=== PATIENT | male | born 1980 | race Caucasian/White ===

== ENCOUNTER 2022-10-03 14:15 | Emergency (ER) | payer OTHER ==
[~2022-10-03] VITALS: Ht 162.6 cm; Wt 62.0 kg
[2022-10-03] MEDS ORDERED: ASPIRIN 81MG TABLET PO ONE (23:15)
[2022-10-04] LABS: BASOPHILS % 0.4 % (0.0-2.0); EOSINOPHILS % 0.9 % (0.0-5.0); HEMOGLOBIN. 15.7 g/dL (14.0-18.0); LYMPHOCYTES % 25.2 % (20.0-50.0); MEAN CORPUSCULAR HEMOGLOBIN 31.5 pg (28.0-32.0); MEAN CORPUSCULAR VOLUME 90.6 fL (80.0-94.0); MONOCYTES % 9.8 % (2.0-8.0); NEUTROPHILS % 63.7 % (40.0-76.0); PLATELET 293 x1000/uL (130-400); RED BLOOD CELL COUNT 4.97 mill/uL (4.7-6.1); RED CELL DISTRIBUTION WIDTH 13.5 % (11.6-14.6)
[2022-10-04 01:09] LABS: CHLORIDE 104 mEq/L (98-107)
[2022-10-04 01:42] VITALS: BP 107/61
== END 2022-10-04 01:43 | disposition home or self-care (01) ==
LOC: ER 14:15
DX: R07.2 Precordial pain (principal)
CPT/HCPCS: 36415; 71045; 80053; 84484; 85025; 99284

== ENCOUNTER 2024-09-30 17:36 | Emergency (ER) | payer OTHER ==
[~2024-09-30] VITALS: Ht 170.2 cm; Wt 73.0 kg
[2024-09-30 17:42] VITALS: O2SAT 100
[2024-09-30 18:00] VITALS: TEMP 36.78072
[2024-09-30 18:32] LABS: BASOPHILS % 0.5 % (0.0-2.0); EOSINOPHILS % 0.8 % (0.0-5.0); HEMATOCRIT. 43.7 % (42.0-52.0); HEMOGLOBIN. 14.9 g/dL (14.0-18.0); LYMPHOCYTES % 21.9 % (20.0-50.0); MEAN CORPUSCULAR HEMOGLOBIN 31.5 pg (28.0-32.0); MEAN CORPUSCULAR HGB CONC 34.2 g/dL (31.0-37.0); MEAN CORPUSCULAR VOLUME 92.1 fL (80.0-94.0); MONOCYTES % 7.5 % (2.0-8.0); NEUTROPHILS % 69.3 % (40.0-76.0); RED BLOOD CELL COUNT 4.74 mill/uL (4.7-6.1); RED CELL DISTRIBUTION WIDTH 13.2 % (11.6-14.6); WHITE BLOOD COUNT 7.2 x1000/uL (4.5-11.0)
[2024-09-30 18:36] LABS: CHLORIDE 104 mEq/L (98-107); POTASSIUM 3.5 mEq/L (3.5-5.1); SODIUM 140 mEq/L (136-145)
[2024-09-30 18:37] LABS: CARBON DIOXIDE 27 mEq/L (21-32)
[2024-09-30 18:38] LABS: CALCIUM 9.8 mg/dL (8.7-10.4); DIFFERENTIAL COMMENT 1
[2024-09-30 18:42] LABS: GLUCOSE 116 mg/dL (70-105)
[2024-09-30 18:43] LABS: PROTHROMBIN TIME 10.8 sec (9.6-11.0); UREA NITROGEN BLOOD 9 mg/dL (9-23)
[2024-09-30 18:44] LABS: ALANINE AMINOTRANSFERASE 110 IU/L (10-49); ALBUMIN 5.3 g/dL (3.2-4.8); ASPARTATE AMINOTRANSFERASE 65 IU/L (<34)
[2024-09-30 18:45] LABS: BILIRUBIN DIRECT 0.1 mg/dL (<=3.0); BILIRUBIN TOTAL 0.4 mg/dL (0.1-1.0); PROTEIN TOTAL 8.5 g/dL (6.0-8.3)
[2024-09-30 18:48] LABS: CLARITY URINE CLEAR (CLEAR); COLOR URINE YELLOW (YELLOW); GLUCOSE URINE NEGATIVE (NEGATIVE); KETONES URINE NEGATIVE (NEGATIVE); LEUKOCYTE ESTERASE URINE NEGATIVE (NEGATIVE); NITRITE URINE NEGATIVE (NEGATIVE); OCCULT BLOOD URINE NEGATIVE (NEGATIVE); PROTEIN URINE NEGATIVE (NEGATIVE); SPECIFIC GRAVITY URINE 1.004 (1.005-1.030); UROBILINOGEN URINE 0.2 E.U./dL (0.2-1.0)
[2024-09-30 18:52] LABS: ETHANOL BLOOD < 10 mg/dL (<10); TROPONIN I HIGH SENSITIVITY < 4 ng/L (3.0-53)
[2024-09-30 19:06] LABS: MEAN PLATELET VOLUME 7.9 fl (7.4-10.4); PLATELET 294 x1000/uL (130-400)
[2024-09-30] MEDS: ASPIRIN 81MG TABLET PO ONE (19:06)
[2024-09-30 20:31] LABS: TROPONIN I HIGH SENSITIVITY < 4 ng/L (3.0-53)
[2024-09-30 20:54] VITALS: BP 111/72; PULSE 86; RESP 16; O2SAT 98
== END 2024-09-30 20:57 | disposition home or self-care (01) ==
LOC: ER 17:36
DX: R07.89 Other chest pain (principal); F41.9 Anxiety disorder, unspecified; E78.00 Pure hypercholesterolemia, unspecified
CPT/HCPCS: 80076; 80048; 81003; 80320; 83880; 83690; 85025; 85610; 84484; 36415; 71045; 93005; 99285; Z7610 ×2; G0480